=== PATIENT | male | born 1975 ===

== ENCOUNTER 2018-07-08 21:57 | Emergency (ER) | payer SELFPAY ==
[2018-07-08 21:57] VITALS: BMI 23.4
[2018-07-08 22:42] VITALS: RESP 18
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
[2018-07-08 23:56] VITALS: BP 106/68; PULSE 70; TEMP 98.9
[2018-07-09 01:31] VITALS: O2SAT 98
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
== END 2018-07-08 23:55 | disposition home or self-care (01) ==
LOC: C.ER 21:57
DX: S52.125A Nondisplaced fracture of head of left radius, initial encounter for closed fracture (principal); V19.3XXA Pedal cyclist (driver) (passenger) injured in unspecified nontraffic accident, initial encounter; Y93.55 Activity, bike riding

== ENCOUNTER 2018-10-02 18:02 | Inpatient (IN) | payer MEDICAID, OTHER ==
[2018-10-02 18:02] VITALS: BMI 23.4
--- NOTE | 2018-10-02 20:03 | C.PDOC ---
History Of Present Illness 43 year old male presents to the ED requesting detox for alcohol abuse. Patient admits his last drink was 90 minuted [employer]. Patient denies SI/HI, hallucinations, other complaints. Time Seen by Provider: 10/02/18 19:01 Chief Complaint (Nursing): Substance Abuse History Per: Patient History/Exam Limitations: no limitations Onset/Duration Of Symptoms: Hrs Current Symptoms Are (Timing): Still Present Suicide/Self Injury Attempted (Context): None Modifying Factor(s): Alcohol Associated Symptoms: denies: Depression, Suicidal Thoughts, Suicidal Plan Recent travel outside of the [place]: No Additional History Per: Patient Past Medical History Reviewed: Historical Data, Nursing Documentation, Vital Signs Vital Signs: Last Vital Signs Temp 98.4 F 10/02/18 18:35 Pulse 83 10/02/18 18:35 Resp 18 10/02/18 18:35 BP 123/86 10/02/18 18:35 Pulse Ox 95 10/02/18 18:35 Primary Care Provider: Miranda Cowart - Medical History PMH: Gastritis, Gall Bladder Disease, Pancreatitis Denies: Fractures, Chronic Kidney Disease Surgical History: Cholecystectomy - [facility] Procedures DETOXIFICATION SERVICES FOR SUBSTANCE ABUSE TREATMENT (10/21/17) DRAINAGE OF GALLBLADDER WITH DRAINAGE DEVICE, PERC APPROACH (10/25/17) EXTRACTION OF ABDOMEN SKIN, EXTERNAL APPROACH (11/14/17) INDIV PSYCHOTHERAPY FOR SUBSTANCE ABUSE TREATMENT, SUPPORT (10/21/17) INDIV PSYCHOTHERAPY FOR SUBSTANCE ABUSE, COGNITIV BEHAVIORAL (10/21/17) RELEASE PERITONEUM, PERCUTANEOUS ENDOSCOPIC APPROACH (11/14/17) REMOVAL OF DRAIN DEV FROM GALLBLADDER, PERC ENDO APPROACH (11/14/17) RESECTION OF GALLBLADDER, PERCUTANEOUS ENDOSCOPIC APPROACH (11/14/17) ROBOTIC ASSISTED PROCEDURE OF TRUNK, PERC ENDO APPROACH (11/14/17) Family History: States: Unknown Family Hx - Social History Hx Alcohol Use: Yes Hx Substance Use: No - Immunization History Hx Tetanus Toxoid Vaccination: No Hx Influenza Vaccination: No Hx Pneumococcal Vaccination: Yes Review Of Systems Constitutional: Negative for: Fever, Chills Cardiovascular: Negative for: Chest Pain Respiratory: Negative for: Shortness of Breath Gastrointestinal: Negative for: Nausea, Vomiting, Abdominal Pain Skin: Negative for: Rash Neurological: Negative for: Weakness, Numbness Psych: Negative for: Depression, Suicidal ideation Physical Exam - Physical Exam Appears: Non-toxic, No Acute Distress Skin: Normal Color, Warm, Dry Head: Atraumatic, Normacephalic Eye(s): bilateral: Normal Inspection Neck: Normal ROM, Supple Chest: Symmetrical Cardiovascular: Rhythm Regular Respiratory: Normal Breath Sounds, No Rales, No Rhonchi, No Wheezing Gastrointestinal/Abdominal: Soft, No Tenderness, No Guarding, No Rebound Extremity: Normal ROM, No Tenderness, No Swelling Neurological/Psych: Oriented x3, Normal Speech, Normal Cognition Gait: Steady ED Course And Treatment - Laboratory Results Result Diagrams: 10/02/18 19:20 10/02/18 19:20 O2 Sat by Pulse Oximetry: 95 (On RA) Pulse Ox Interpretation: Normal Medical Decision Making Medical Decision Making: Plan: * Labs * UA 21:40 - Patient is medically cleared Disposition - Disposition Disposition: HOSPITALIZED Disposition Time: 21:00 Condition: STABLE Forms: [facility] (Swedish) - Clinical Impression Clinical Impression: Alcohol abuse, Alcohol withdrawal - Scribe Statement The provider has reviewed the documentation as recorded by the Scribe Davis Luis All medical record entries made by the Scribe were at my direction and personally dictated by me. I have reviewed the chart and agree that the record accurately reflects my personal performance of the history, physical exam, medical decision making, and the department course for this patient. I have also personally directed, reviewed, and agree with the discharge instructions and disposition. Decision To Admit - Pt Status Changed To: Hospital Disposition Of: Observation - . Bed Request Type: Detox Admitting Physician: Migue Short Patient Diagnosis: Alcohol abuse, Alcohol withdrawal
[2018-10-02 20:49] LABS: URINE AMORPHOUS SEDIMENT FEW /ul (<OCC); URINE BILIRUBIN 1+ (NEGATIVE); URINE BLOOD 1+ (NEGATIVE); URINE CLARITY Hazy (Clear); URINE GLUCOSE (UA) NORMAL (Normal); URINE LEUKOCYTE ESTERASE NEG Leu/uL (Negative); URINE PROTEIN 1+ mg/dL (NEGATIVE)
[2018-10-02 20:50] LABS: URINE COLOR YELLOW (YELLOW)
[2018-10-02 21:12] LABS: ALB/GLOB RATIO 0.9 (1.0-2.1); ALBUMIN 4.3 g/dL (3.5-5.0); ALT/SGPT 146 U/L (21-72); AST/SGOT 345 U/L (17-59); BLOOD UREA NITROGEN 11 mg/dL (9-20); CALCIUM 8.9 mg/dl (8.6-10.4); GFR NON-AFRICAN AMERICAN > 60
[2018-10-02 21:25] LABS: BARBITURATES, UR NEGATIVE (NEGATIVE); BENZODIAZEPINES, UR NEGATIVE (NEGATIVE); PHENCYCLIDINE, UR NEGATIVE (NEGATIVE)
[2018-10-02 21:30] LABS: BASO # 0.1 K/uL (0.0-0.2); BASO % 1.1 % (0.0-2.0); EOS # 0.1 K/uL (0.0-0.7); EOS % 0.9 % (0.0-4.0); HEMOGLOBIN 14.6 g/dL (12.0-18.0); LYMPH # 1.7 K/uL (1.0-4.3); LYMPH % 22.4 % (20.0-40.0); MEAN CELL VOLUME 93.3 fL (80.0-94.0); MEAN CORPUSCULAR HEMOGLOBIN 31.4 pg (27.0-31.0); MEAN CORPUSCULAR HGB CONC 33.6 g/dL (33.0-37.0); MEAN PLATELET VOLUME 7.8 fL (7.2-11.7); MONO # 0.6 K/uL (0.0-0.8); MONO % 8.3 % (0.0-10.0); NEUT # 5.2 K/uL (1.8-7.0); NEUT % 67.3 % (50.0-75.0); RBC 4.64 Mil/uL (4.40-5.90); RED CELL DISTRIBUTION WIDTH 15.6 % (11.5-14.5); WHITE BLOOD COUNT 7.7 K/uL (4.8-10.8)
[2018-10-02 21:59] LABS: OPIATES, UR POSITIVE (NEGATIVE)
--- NOTE | 2018-10-02 22:34 | PCM.BM ---
<Aidan Valverde - Last Filed: 10/02/18 22:32> Treatment Plan Problems - Problems identified on initial assessmt knowledge deficit:alcohol use Date Initiated: 10/02/18 Time Initiated: 22:33 Assessment reference: NA Status: Active denial Date Initiated: 10/02/18 Time Initiated: 22:33 Assessment reference: NA Status: Active defensive coping Date Initiated: 10/02/18 Time Initiated: 22:34 Assessment reference: NA Status: Active Treatment assets and liabiliti Patient Assests: adapts well, cooperative, ADL independent, cognitively intact Patient Liabilities: substance abuse - Milieu Protocol Maintain good personal hygiene: daily Encourage regular showers, daily Remind patient to perform daily oral care, daily Assist patient to perform ADL's Conduct patient checks and document Observation sheet: Q15 minutes Maintain personal safety: every shift Educate patient to report safety concerns to staff, every shift Monitor environment for contraband/sharps Medication safety: Monitor for expected outcome, potential side effects: every shift, Assess barriers to learning: every shift, Assess readiness for medication education: every shift <Brody Light - Last Filed: 10/04/18 10:16> - Diagnosis (1) Alcohol withdrawal Status: Acute Interventions: 10/04/18 10:16 * Assess 7x/week regarding severity of withdrawal * Educate regarding risks, benefits, side effects and alternatives of medications * Use Motivational Interviewing for abstinence * Use CBT for relapse prevention * Medication management for withdrawal symptoms * Encourage medication assisted treatment *
--- NOTE | 2018-10-03 08:34 | PCM.PSYCH ---
Initial Psychiatric Evaluation - Initial Psychiatric Evaluation Type of Admission: Voluntary Legal Status: Capacity Chief Complaint (in patient's own words): "I am sick" History of Present Illness and Precipitating Events: He is switched to INPAT from OBS as he is withdrawing and treatment started. Needs inpatient care. The patient is seen, chart reviewed and case discussed. This is a 43-year-old male, single but engaged and lives with his fiance. Patient has 2 children aged 12 and 27 but they do not live with him. However, his fiance has 3 children aged 9, 12 and 16 and they live with them. The patient is unemployed currently. The patient is here for alcohol detox. He was drinking more than 10 "airplane bottles" for the past 4 months. He first started drinking in his teens and he claims his alcohol use got worse the last 2 years. He used to do heroin in his 20s and an 30s and he was in detox and rehab couple of times including [facility] and [facility], but he denies it now. However his urine is positive for o piates and he claims it is from the Percocets he takes. In our hospital Percocets do not come positive as opiates. The pt is a poor historian as he is evasive, as tries to portray his addiction as new and mild, but he had [facility]ento detox and rehab in the past and his withdrawl sxs were much more significant than what would happen in his drinking level. He denies all other drugs he smokes half packet cigarettes No seizures but he describes significant withdrawal symptoms, nearing DTs sometimes Past psych history: Denies (evasive) Medical history: Denies (again, evasive) Family psych history: Denies Current Medications: Active Medications Generic Name Dose Route Start Last Admin Trade Name Freq PRN Reason Stop Dose Admin Hydroxyzine HCl 25 mg 10/03/18 00:01 10/03/18 02:12 Atarax PO 25 mg Q6 PRN Administration Anxiety Trazodone HCl 50 mg 10/03/18 00:02 Desyrel PO HS PRN Insomnia Past Psychiatric History - Past Psychiatric History Previous Treatment History: None Pertinent Medical Hx (Current Medical&Sleep Prob, Allergies): Allergies Allergy/AdvReac Type Severity Reaction Status Date / Time No Known Allergies Allergy Verified 07/08/18 22:27 Oxycodone HCl/Acetaminophen [Percocet 10-325 mg Tablet] 1 each PO PRN PRN 10/02/18 Review of Systems - Psychiatric Psychiatric: Abnormal Sleep Pattern, Anxiety, Difficulty Concentrating, Irritability. absent: Hallucinations, Homicidal Ideation, Paranoia, Suicidal Ideation Mental Status Examination - Personal Presentation Personal Presentation: Looks stated age - Affect Affect: Constricted - Motor Activity Motor Activity: Calm - Reliability in Providing Information Reliability in Providing Information: Good - Speech Speech: Organized - Mood Mood: Anxious - Formal Thought Process Formal Thought Process: No Impairment - Cognitive Functions Orientation: Person, Place, Situation, Time Sensorium: Alert Attention/Concentration: Easily distracted Abstract Thinking: [place] Estimate of Intelligence: Average Judgement: Intact, as evidence by: Insight regarding need for hospitalization Memory: Recent intact, as evidence by: Ability to recall events of the day, Remote intact, as evidenced by: Abilit to recall sig. life events - Risk Risk: Seizure, Withdrawal, Diminished functioning - Strength & Assets Inventory Strength & Assets Inventory: Cooperative DSM 5 DX - DSM 5 DSM 5 Diagnosis: Alcohol withdrawal Alcohol use d/o - severe Opioid use d/o - severe Tobacco use d/o - severe Personality d/o - unpsecified - Recommended/Plan of Treatment Treatment Recommendations and Plan of Treatment: Taper with lorazepam Monitor opioid wdw Gabapentin for augmentation if needed As needed medications All risks, benefits and alternatives of the meds discussed, and the pt agreed and understood. Attend groups and activities Supportive therapy and psychoeducation DC for abstinence CBT for relapse prevention Encourage MAT Refer to rehab or IOP, and self-help groups Teach healthy lifestyle methods, i.e. diet, exercise, meditation Smoking cessation with DC Nicotine patch if needed 34 min Projected ELOS: 4 days
[2018-10-03] MEDS ORDERED: Aluminum Hydroxide/Magnesium Hydroxide Susp (30 mL) PO PRN (08:40)
[2018-10-03] MEDS: Multiple Vitamins Tab PO SCH (09:31)
[2018-10-04] MEDS: Multiple Vitamins Tab PO SCH (09:39)
[2018-10-04 10:27] VITALS: RESP 18
--- NOTE | 2018-10-04 11:07 | PCM.PYCHPN ---
Mental Status Examination - Cognitive Function Orientation: Person, Place, Situation, Time - Mood Mood: Anxious - Affect Affect: Constricted - Formal Thought Process Formal Thought Process: No Impairment
[2018-10-04 12:58] VITALS: TEMP 97.8; O2SAT 99
[2018-10-04 13:03] VITALS: BP 111/78; PULSE 100
== END 2018-10-04 17:40 | disposition left against medical advice (07) | DRG 770 ==
LOC: C.ER 18:02 → C.7D 22:06 → OBSVTOIN 10-03 10:22
PROC: HZ2ZZZZ Detoxification Services for Substance Abuse Treatment (ICD-10-PCS; principal; 2018-10-03)
DX: F10.231 Alcohol dependence with withdrawal delirium (principal); F11.10 Opioid abuse, uncomplicated; F60.9 Personality disorder, unspecified; F17.210 Nicotine dependence, cigarettes, uncomplicated